=== PATIENT | female | born 1985 | race Hispanic/Latino ===

== ENCOUNTER 2018-11-16 17:20 | Emergency (ER) | payer OTHER ==
[2018-11-16 18:04] VITALS: BP 107/74; PULSE 102; RESP 18; TEMP 98.4; O2SAT 98
--- NOTE | 2018-11-16 19:43 | ED PDOC ---
HPI: General Adult Time Seen by Provider: 11/16/18 18:06 Chief Complaint (Nursing): Flu-like Symptoms Chief Complaint (Provider): Breast Problem History Per: Patient History/Exam Limitations: no limitations Onset/Duration Of Symptoms: Days (1x) Current Symptoms Are (Timing): Still Present Severity: Moderate Additional Complaint(s): 33 year old female with no pertinent past medical history presents to the ED for an evaluation of a breast problem that started today. Patient reports that today she developed left breast pain and warmth and had a fever (tmax 100.1F). Patient states that she is currently breast feeding. Patient reports that she called her TRACK WORKER today, but did not receive a callback until she had already signed into the ED and was waiting in her room. called in a prescription for augmentin and advised patient to continue and to follow up with her tomorrow (appointment made). Patient denies having a cough, congestion, sore throat, runny nose, sore throat, nausea, vomiting, diarrhea, shortness of breath, chest pain, or nipple discharge. TRACK WORKER: Vanessa Ramon MD. PMD: None provided. Past Medical History Reviewed: Historical Data, Nursing Documentation, Vital Signs Vital Signs: Last Vital Signs Temp 98.4 F 11/16/18 18:01 Pulse 102 H 11/16/18 18:01 Resp 18 11/16/18 18:01 BP 107/74 11/16/18 18:01 Pulse Ox 98 11/16/18 18:01 SAMUEL Report Viewed: Yes - Medical History PMH: No Chronic Diseases - Family History Family History: States: No Known Family Hx - Social History Current smoker - smoking cessation education provided: No Alcohol: None Drugs: Denies - Allergies Allergies/Adverse Reactions: Allergies Allergy/AdvReac Type Severity Reaction Status Date / Time No Known Allergies Allergy Verified 11/16/18 18:04 Review of Systems ROS Statement: Except As Marked, All Systems Reviewed And Found Negative Constitutional: Positive for: Fever (tmax 100.1 F) ENT: Negative for: Nose Discharge, Nose Congestion, Throat Pain Cardiovascular: Negative for: Chest Pain Respiratory: Positive for: Other (left breast pain and warmth. (-) nipple discharge). Negative for: Cough, Shortness of Breath Gastrointestinal: Negative for: Nausea, Vomiting, Diarrhea Physical Exam - Reviewed Nursing Documentation Reviewed: Yes Vital Signs Reviewed: Yes - Physical Exam Appears: Positive for: Well, Non-toxic, No Acute Distress Head Exam: Positive for: ATRAUMATIC, NORMOCEPHALIC Skin: Positive for: Normal Color, Warm, Dry Cardiovascular/Chest: Positive for: Regular Rate, Rhythm, Other (Breast exam rubber worker present: Nurse Johnson. Left breast: (-) skin changes. (+) warmth. (-) masses, (-) nipple discharge.) Respiratory: Positive for: Normal Breath Sounds Neurologic/Psych: Positive for: Alert, Oriented (3x) - ECG O2 Sat by Pulse Oximetry: 98 (RA) Pulse Ox Interpretation: Normal Medical Decision Making Medical Decision Makin:06 Initial impression: 33 year old female with left breast pain. Patient advised to follow up with TRACK WORKER tomorrow as scheduled, take prescription augmentin, and to return to the ED if symptoms persist or worsen. Scribe Attestation: Documented byJamee Michaels, acting as a scribe for Lennox Bowling Provider Scribe Attestation: All medical record entries made by the Scribe were at my direction and personally dictated by me. I have reviewed the chart and agree that the record accurately reflects my personal performance of the history, physical exam, medical decision making, and the department course for this patient. I have also personally directed, reviewed, and agree with the discharge instructions and disposition. Disposition - Clinical Impression Clinical Impression: Mastitis - Disposition Referrals: Francis Santillan [Outside] Disposition: Routine/Home Disposition Time: 18:15 Condition: STABLE Additional Instructions: TAKE YOUR ANTIBIOTICS PRESCRIBED FOLLOW UP WITH YOUR OBGYN FOR FURTHER EVALUATION RETURN TO ED IMMEDIATELY IF SYMPTOMS WORSEN YANETH DAILEY, thank you for letting us take care of you today. Your provider was Kurtis Lynch MD and you were treated for FLU LIKE SYMPTOMS. The emergency medical care you received today was directed at your acute symptoms. If you were prescribed any medication, please fill it and take as directed. It may take several days for your symptoms to resolve. Return to the Emergency Department if your symptoms worsen, do not improve, or if you have any other problems. Please contact your doctor or call one of the physicians/clinics you have been referred to that are listed on the Patient Visit Information form that is included in your discharge packet. Bring any paperwork you were given at discharge with you along with any medications you are taking to your follow up visit. Our treatment cannot replace ongoing medical care by a primary care provider outside of the emergency department. Thank you for allowing the [facility] team to be part of your care today. If you had an X-Ray or CT scan: A Radiologist will review the ED reading if any change in treatment is needed we will contact you. If you had a blood, urine, or wound culture: It will take several days for the results, if any change in treatment is needed we will contact you. If you had an STI test: It will take 48 hours for the results. Please call after 1 week if you have not heard back. Instructions: Mastitis (DC) Forms: [employer] (Indonesian) Print Language: KHMER
== END 2018-11-16 18:22 | disposition home or self-care (01) ==
LOC: H.ER 17:20
DX: N61.0 Mastitis without abscess (principal)